=== PATIENT | female | born 1985 | race Two or more races ===

== ENCOUNTER 2019-02-20 11:19 | Emergency (ER) | payer MEDICAID ==
[2019-02-20] MEDS ORDERED: Albuterol 0.083% 2.5 MG/3 ML Neb Soln NEB ONE (11:40)
--- NOTE | 2019-02-20 12:33 | EDM.PDOC ---
ED HPI GENERAL MEDICAL PROBLEM - General Chief Complaint: Respiratory Problem Stated Complaint: ASTHMA Time Seen by Provider: 02/20/19 11:28 Source of Information: Reports: Patient, RN Notes Reviewed History Limitations: Reports: Language Barrier (The is present and speaks a little burmese, the patient can understand a little hungarian as well. Interpretive services via Ipad were utilized.) - History of Present Illness INITIAL COMMENTS - FREE TEXT/NARRATIVE: Patient is a 34 year old female who presents to the ED for the evaluation of her asthma. The patient states that she has been dealing with this since she was a child. She is a recent transplant from [place]. Her and her have moved to [place] to live. She does not have a nebulizer machine with her here , and this is how she takes her medications. She could not remember the name of the medication that she took for her Asthma. She states that she has some chest tightness/wheezing, increased cough without sputum production. She denies any chest pain, fever/chills, or nausea/vomiting/diarrhea. 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 - Past Surgical History Female Surgical History: Reports: Section Social & Family History - Tobacco Use Smoking Status *Q: Current Every Day Smoker Years of Tobacco use: 15 Packs/Tins Daily: 1 - Caffeine Use Caffeine Use: Reports: Coffee - Recreational Drug Use Recreational Drug Use: No ED ROS GENERAL - Review of Systems Review Of Systems: See Below Constitutional: Denies: Fever, Chills HEENT: Reports: No Symptoms Respiratory: Reports: Shortness of Breath, Wheezing, Cough Cardiovascular: Denies: Chest Pain Endocrine: Reports: No Symptoms GI/Abdominal: Reports: No Symptoms : Reports: No Symptoms Musculoskeletal: Reports: No Symptoms Skin: Reports: No Symptoms Neurological: Reports: No Symptoms Psychiatric: Reports: No Symptoms Hematologic/Lymphatic: Reports: No Symptoms Immunologic: Reports: No Symptoms ED EXAM, GENERAL - Physical Exam Exam: See Below Exam Limited By: No Limitations General Appearance: Alert, WD/WN, No Apparent Distress Eye Exam: Bilateral Eye: EOMI, Normal Inspection, PERRL Ears: Normal External Exam, Normal Canal, Hearing Grossly Normal, Normal TMs Nose: Normal Inspection, Normal Mucosa, No Blood Throat/Mouth: Normal Inspection, Normal Lips, Normal Teeth, Normal Gums, Normal Oropharynx, Normal Voice, No Airway Compromise Head: Atraumatic, Normocephalic Neck: Normal Inspection, Supple, Non-Tender, Full Range of Motion Respiratory/Chest: No Respiratory Distress, Lungs Clear, No Accessory Muscle Use , Chest Non-Tender, Decreased Breath Sounds (bilateral). No: Wheezing Cardiovascular: Normal Peripheral Pulses, Regular Rate, Rhythm, No Edema, No Murmur GI/Abdominal: Normal Bowel Sounds, Soft, Non-Tender, No Distention, No Mass Extremities: Normal Inspection, Normal Capillary Refill Neurological: Alert, Oriented, Normal Cognition, No Motor/Sensory Deficits Psychiatric: Normal Affect, Normal Mood Skin Exam: Warm, Dry, Intact, Normal Color, No Rash Course - Vital Signs Last Recorded V/S: Last Vital Signs Temp 97.8 F 02/20/19 12:07 Pulse 97 02/20/19 12:07 Resp 18 02/20/19 12:07 BP 145/91 H 02/20/19 12:07 Pulse Ox 97 02/20/19 12:07 - Orders/Labs/Meds Orders: Active Orders 24 hr Category Date Time Status RT Aerosol Therapy [RC] ASDIRECTED Care 02/20/19 11:40 Active Consult to Respiratory Therapy [Respiratory Care Assess Cons 02/20/19 12:40 Active and Treatment] [CONS] Routine Chest 2V [CR] Stat Exams 02/20/19 11:40 Taken Labs: Laboratory Tests 02/20/19 02/20/19 02/20/19 Range/Units 12:10 12:10 12:10 WBC 10.73 H (3.98-10.04) K/mm3 RBC 4.51 (3.98-5.22) M/mm3 Hgb 12.7 (11.2-15.7) gm/L Hct 38.4 (34.1-44.9) % MCV 85.1 (79.4-94.8) fl MCH 28.2 (25.6-32.2) pg MCHC 33.1 (32.2-35.5) g/dl RDW Std Deviation 41.4 (36.4-46.3) fL Plt Count 199 (182-369) K/mm3 MPV 11.1 (9.4-12.3) fl Neut % (Auto) 62.7 (34.0-71.1) % Lymph % (Auto) 22.0 (19.3-51.7) % Woodruff % (Auto) 10.0 (4.7-12.5) % Eos % (Auto) 4.8 (0.7-5.8) Baso % (Auto) 0.3 (0.1-1.2) % Neut # (Auto) 6.74 H (1.56-6.13) K/mm3 Lymph # (Auto) 2.36 (1.18-3.74) K/mm3 Woodruff # (Auto) 1.07 H (0.24-0.36) K/mm3 Eos # (Auto) 0.51 H (0.04-0.36) K/mm3 Baso # (Auto) 0.03 (0.01-0.08) K/mm3 Sodium 139 (136-145) mEq/L Potassium 3.8 (3.5-5.1) mEq/L Chloride 105 (98-107) mEq/L Carbon Dioxide 24 (21-32) mEq/L Anion Gap 13.8 (5-15) BUN 13 (7-18) mg/dL Creatinine 0.8 (0.55-1.02) mg/dL Est Cr Clr Drug Dosing 99.95 mL/min Estimated GFR (MDRD) > 60 (>60) mL/min BUN/Creatinine Ratio 16.3 (14-18) Glucose 138 H (74-106) mg/dL Calcium 8.7 (8.5-10.1) mg/dL Total Bilirubin 0.3 (0.2-1.0) mg/dL AST 20 (15-37) U/L ALT 33 (14-59) U/L Alkaline Phosphatase 82 (46-116) U/L Total Protein 7.2 (6.4-8.2) g/dl Albumin 3.4 (3.4-5.0) g/dl Globulin 3.8 gm/dL Albumin/Globulin Ratio 0.9 L (1-2) HCG, Qual Negative (NEGATIVE) Meds: Medications Discontinued Medications Generic Name Dose Route Start Last Admin Trade Name Freq PRN Reason Stop Dose Admin Albuterol 2.5 mg 02/20/19 11:40 02/20/19 11:49 Proventil Neb Soln NEB 02/20/19 11:41 2.5 mg ONETIME ONE Administration - Re-Assessments/Exams Free Text/Narrative Re-Assessment/Exam: 02/20/19 12:31 Pt presents to the ED for the evaluation of her Asthma. She is unsure if she could be , I have ordered a CBC, CMP, Qualitative HCG and a chest x-ray for initial and further management. They will need a nebulizer to take home with them. I will likely get her on a prednisone burst as well. 02/20/19 13:09 The patient's labs are WNL, and her chest x-ray is also WNL, this was reviewed by Dr Mendoza and myself. Departure - Departure Time of Disposition: 13:09 Disposition: Home, Self-Care 01 Condition: Fair Clinical Impression: Exacerbation of asthma Qualifiers: Asthma severity: mild Asthma persistence: unspecified Qualified Code(s): J45.901 - Unspecified asthma with (acute) exacerbation - Discharge Information *PRESCRIPTION DRUG MONITORING PROGRAM REVIEWED*: No *COPY OF PRESCRIPTION DRUG MONITORING REPORT IN PATIENT TRINITY: No Prescriptions: Albuterol [Proventil Neb Soln] 2.5 mg NEB Q4H #1 box predniSONE [Prednisone] 20 mg PO ASDIRECTED #15 tablet Instructions: Asthma, Adult, [id number] Referrals: PCP,None [Primary Care Provider] - Forms: ED Department Discharge Additional Instructions: Usted franco sido evaluado en la niecy de emergencias para peña asma. You have been evaluated in the ER for your Asthma. Recibieron un nebulizador de albuterol en la niecy de emergencias hoy. You have been given an albuterol nebulizer in the ER today. Jessica sntomas probablemente se deban a un empeoramiento del episodio de asma, peña radiografa y el trabajo de laboratorio estuvieron bola hoy. Your symptoms are likely due to a worsening episode of your Asthma, Your X-ray and lab work were okay today. Se le franco proporcionado brissa mquina nebulizadora y brissa receta de Albuterol. You have been provided with a nebulizer machine and Albuterol prescription. Se le salmon proporcionado 2 recetas: Albuterol y prednisona. Shawmut el Albuterol cada 4 a 6 horas mientras est despierto. La prednisona es para ayudarlo a mejorar peña respiracin sibilante y peña falta de aliento. Por favor, tome ambos medicamentos segn las indicaciones. Estos salmon sido prescritos electrnicamente a la [facility] [place]erca de [facility]. La direccin es [address] You have been provided with 2 prescriptions: Albuterol and prednisone, Please take the Albuterol every 4-6 hours while awake, The prednisone is to help make your wheezing and shortness of breath better as well. Please take both medications as directed. These have been electronically prescribed to the [facility] store located near [facility]. The address is [address] Recomendamos que establezca atencin con un proveedor de medicina familiar. Nuestro nmero de clnica es [phone], por favor llame al para hacerlo. Recommend that you set up care with a family practice provider. Our clinic number is [phone], please call Thursday to do so. Por favor regrese al servicio de urgencias si jessica sntomas deberan cambiar o empeorar. Please return to the ED if your symptoms should change or worsen. - My Orders Last 24 Hours: My Active Orders 02/20/19 11:40 RT Aerosol Therapy [RC] ASDIRECTED Chest 2V [CR] Stat 02/20/19 12:40 Consult to Respiratory Therapy [Respiratory Care Assess and Treatment] [CONS] Routine - Assessment/Plan Last 24 Hours: My Active Orders 02/20/19 11:40 RT Aerosol Therapy [RC] ASDIRECTED Chest 2V [CR] Stat 02/20/19 12:40 Consult to Respiratory Therapy [Respiratory Care Assess and Treatment] [CONS] Routine
--- NOTE | 2019-02-21 07:25 | CR ---
Chest: Two views of the chest were obtained. Comparison: No prior chest x-ray. Slight scoliosis is seen. Heart size and mediastinum are normal. Lungs are clear. Impression: 1. Nothing acute is appreciated on two-view chest x-ray. Diagnostic code #2
== END 2019-02-20 13:14 | disposition home or self-care (01) ==
LOC: JD.ED 11:19
DX: J45.901 Unspecified asthma with (acute) exacerbation (principal); I10 Essential (primary) hypertension; F17.210 Nicotine dependence, cigarettes, uncomplicated; Z88.0 Allergy status to penicillin; Z79.899 Other long term (current) drug therapy
CPT/HCPCS: 36415; 71046; 71046-26; 80053; 84703; 85025; 94640; 99283; 99285-25